=== PATIENT | male | born 1935 | race Caucasian/White ===

== ENCOUNTER → 2017-09-28 | Outpatient (CLI) | payer MEDICARE, BC ==
[~2017-09-28] MED LIST: ATOR10TA PO; DILT120C2 PO; FLUO10CA13 PO; FLUO25PO MC; META-21 PO; NITR2.5C3 PO; OMEP20CA5 PO; ONDA4TAB7 PO; PRAV20TA PO; PROP150T PO; QUIN1POW MC; SPIR25TA PO; VENL37.5 PO; WARF2TAB7 PO
--- NOTE | 2017-09-28 16:27 | RAD ---
2 view CXR: Clinical indications: Shortness of air. Atrial fibrillation. History of right upper lobe lobectomy. Comparison: January 27, 2017.. Findings: Postoperative changes of the right lung field and right hilum are evident. No acute lung infiltrate or pleural effusion or pulmonary edema or lung mass or pneumothorax is seen. The heart size, pulmonary vasculature, mediastinum and both elodia are otherwise unremarkable. The osseous structures appear intact. Impression: No acute radiographic abnormality is seen.
== END | disposition home or self-care (01) ==
LOC: RAD 15:50
PROVIDERS: ATTEND Nurse Practitioner
DX: I48.91 Unspecified atrial fibrillation (principal); Z90.2 Acquired absence of lung [part of]
CPT/HCPCS: 71020

== ENCOUNTER → 2018-03-06 | Outpatient (CLI) | payer MEDICARE, BC ==
--- NOTE | 2018-03-06 13:57 | RAD ---
Ultrasound bilateral renal complete 03/06/2018 Clinical indication: Renal calcifications. Comparison: CT abdomen pelvis 06/17/2015. Findings: Right kidney measures 12.0 cm in length without hydronephrosis or abnormal perinephric fluid collection. There are two adjacent shadowing calculi at the interpolar/inferior pole right kidney measuring 0.8 and 0.7 cm. There is a shadowing echogenicity in the superior pole the right kidney measuring 0.7 cm. Left kidney measures 12.5 cm in length without hydronephrosis or abnormal perinephric fluid collection. There is a tiny left renal 0.4 cm echogenicity. The partially distended urinary bladder is unremarkable. Impression: 1. Three right and single left nonobstructive nephrolithiasis. 2. No hydronephrosis.
--- NOTE | 2018-03-06 13:59 | RAD ---
Single AP view abdomen 03/06/2018 Clinical indication: Renal calculi. Comparison: Abdominal radiograph 2016, CT abdomen and pelvis 06/17/2015. Findings: There are few punctate subcentimeter calculi overlying the left renal silhouette and at least a single punctate calcific density overlying the right renal silhouette. Right upper quadrant cholecystectomy clips multiple pelvic phleboliths. Left L4-L5 posterior spinal fixation with vertical aliyah and transpedicular screws in similar position. Bilateral lower thoracic and lumbar spondylosis. Impression: Bilateral punctate calculi overlying the renal silhouette, likely nephrolithiasis.
== END | disposition home or self-care (01) ==
LOC: US 10:36
PROVIDERS: ATTEND Physician Assistant Medical
DX: Z12.5 Encounter for screening for malignant neoplasm of prostate (principal); Z87.442 Personal history of urinary calculi
CPT/HCPCS: 74018; 76770; G0103

== ENCOUNTER 2018-07-09 15:40 | Inpatient (IN) | payer MEDICARE, BC ==
[2018-07-09] VITALS (8 sets, daily range): BP systolic 108–143; BP diastolic 57–80
[~2018-07-09] VITALS: Ht 177.8 cm; Wt 84.6 kg
[~2018-07-09 15:40] MED LIST changes: -WARF2TAB7 PO; +WARF2TAB96 PO
[2018-07-09] MEDS ORDERED: QUIN324C PO ×2 (16:25→17:03)
[2018-07-09] MEDS ORDERED: CYCL-331 PO (16:25)
[2018-07-09] MEDS ORDERED: PRAV80TA2 PO (16:25)
[2018-07-09] MEDS ORDERED: FLUO20CA16 PO (16:25)
[2018-07-09] MEDS ORDERED: OXYC-411 PO (16:25)
[2018-07-09] MEDS ORDERED: MONT10TA9 PO (16:25)
[2018-07-09] MEDS ORDERED: HYDR25TA9 PO (16:25)
--- NOTE | 2018-07-09 16:25 | EKG ---
[address] [address] Test Date: 2018-07-09 Test Time: 16:20:48 Pat Name: EVENS ROTHMAN Department: Room: [place] [address] Gender: M Mammography Tech: : 1935 Requested By: ROSE NGUYEN Order Number: [id number] Reading MD: Yo Johnson MD Measurements Intervals [place] Rate: 64 P: CT: QRS: 47 QRSD: 82 T: 71 QT: 410 QTc: 423 Interpretive Statements IRREGULAR RHYTHM, NO P-WAVE FOUND NON-SPECIFIC ST/T CHANGES Electronically Signed On 07-09-2018 17:12:10 CDT by Yo Johnson MD
[2018-07-09] MEDS ORDERED: SPIR25TA5 PO (17:03)
[2018-07-09] MEDS ORDERED: WARF2.5T83 PO (17:03)
[2018-07-09] MEDS ORDERED: TAMS0.4C2 PO (17:03)
[2018-07-09 17:15] LABS: BASO # 0.1 x10^3/uL (0.0-0.2); BASO % 1 % (0-3); EOS # 0.2 x10^3/uL (0.0-0.7); EOS % 3 % (0-3); HEMATOCRIT 29.3 % (39.0-53.0); HEMOGLOBIN 9.5 g/dL (13.0-17.5); LYMPH # 1.5 x10^3/uL (1.0-4.8); LYMPH % 26 % (24-48); MEAN CORPUSCULAR HEMOGLOBIN 27 pg (25-35); MEAN CORPUSCULAR HGB CONC 32 g/dL (31-37); MEAN CORPUSCULAR VOLUME 85 fL (79-100); MONO # 0.5 x10^3/uL (0.0-1.1); MONO % 8 % (0-9); NEUT # 3.7 x10^3uL (1.8-7.7); NEUT % 62 % (31-73); PLATELET COUNT 282 x10^3/uL (140-400); RED BLOOD COUNT 3.45 x10^6/uL (4.30-5.70); RED CELL DISTRIBUTION WIDTH 19.7 % (11.5-14.5)
[2018-07-09] MEDS ORDERED: quiNINE 324 MG CAPSULE. PO PRN (17:15)
[2018-07-09] MEDS ORDERED: CYCLOBENZAPRINE 10 MG TABLET. PO PRN (17:15)
[2018-07-09] MEDS ORDERED: ONDANSETRON PF 4 MG/2 ML VIAL. IV PRN (17:15)
[2018-07-09 17:23] LABS: ALBUMIN 3.2 g/dL (3.4-5.0); ALBUMIN/GLOBULIN RATIO 1.1 (1.0-1.7); CALCIUM 8.4 mg/dL (8.5-10.1); CREATININE 0.8 mg/dL (0.7-1.3); GFR 92.8; MAGNESIUM 1.9 mg/dL (1.8-2.4); TOTAL BILIRUBIN 0.3 mg/dL (0.2-1.0); TOTAL PROTEIN 6.1 g/dL (6.4-8.2)
[2018-07-09] MEDS: FUROSEMIDE INJ 100 MG in IV NORMAL SALINE 100ML 90 ML IV PRN (17:41)
[2018-07-09] MEDS ORDERED: ONDANSETRON ODT 4 MG TAB.RAPDIS PO SCH (18:00)
[2018-07-09] MEDS ORDERED: WARFARIN 5 MG TABLET. PO ONE (19:00)
--- NOTE | 2018-07-09 19:33 | HP ---
ADMIT DATE: 07/09/2018 HISTORY OF PRESENT ILLNESS: The patient is an 83-year-old male patient who was admitted directly from the [facility] cardiology team for increasing shortness of breath, marked swelling of the legs, orthopnea, dyspnea, and to be started on Lasix drip. The patient denied any chest pain, denied any cough, phlegm or hemoptysis. Did complain of marked swelling of his legs. PAST MEDICAL HISTORY: Significant for hypertension, hyperlipidemia, atrial fibrillation that has not responded to cardioversion x 5, and also atrial ablation done at the [facility]. He is known to have congestive heart failure, likely due to left ventricular diastolic dysfunction, nephrolithiasis requiring cystoscopy, retrograde pyelography and lithotripsy, benign prostatic hypertrophy, COPD, obstructive sleep apnea, generalized osteoarthritis, TIA. PAST SURGICAL HISTORY: Significant for 10 back surgery, left eye cataract extraction, tonsillectomy, cholecystectomy, appendectomy, left total knee arthroplasty, and atrial ablation. ALLERGIES: He is allergic to CORTISONE, DRONEDARONE, and MELOXICAM. MEDICATIONS: He is currently on following medications: He is on Quinine sulfate 324 mg b.i.d., Flomax 0.4 mg at bedtime, cyclobenzaprine 10 mg 3 times a day, warfarin 2.5 mg daily, pravastatin sodium 80 mg at bedtime, diltiazem hydrochloride 120 mg daily, spironolactone 25 mg once a day, oxycodone/APAP 10/325 one tablet every 4 hours. Fluoxetine for Prozac 20 mg daily with breakfast, hydrochlorothiazide 25 mg once a day, montelukast sodium 10 mg daily, ondansetron 4 mg every 6 hours, omeprazole for Prilosec 20 mg, he takes 2 tablets p.o. b.i.d. FAMILY HISTORY: He has 2 brothers, one at age of 43 because of advanced liver cirrhosis and hepatocellular carcinoma. The other brother at age of 81, because of myocardial infarction. His father at the age of 58, the cause of is not clear. His mother at age of 75 because of myocardial infarction. SOCIAL HISTORY: He is , the son and daughter from a previous marriage. He smoked a pack a day for almost 35 years, quit smoking about 30 years ago. He used to be also a heavy alcohol drinker, quit 30 years ago. 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 REVIEW OF SYSTEMS: The patient denied any blurring of vision, did have cataract extraction, left eye, but denied any glaucoma or macular degeneration. Denied any earache, tinnitus or sensorineural deafness. Denied any nosebleeds, stuffy nose or postnasal drip. Denied any sore throat, sore tongue, toothache, hoarseness of voice or difficulty swallowing. Denied any nausea, vomiting, diarrhea or constipation. Denied any hematemesis, melena or hematochezia. Denied any dysuria, frequency or hematuria. Denied any chest pain. Did complain of shortness of breath, orthopnea or paroxysmal nocturnal dyspnea. Denied any cough, phlegm or hemoptysis. Denied any chills, rigors, or fever. Denied any dizziness, lightheadedness, or vertigo. PHYSICAL EXAMINATION: GENERAL: When I examined him this afternoon, he was resting slightly propped up in bed, in no apparent respiratory distress. He was slightly pale, but no jaundice, cyanosis, or thyromegaly. No jugular venous distension. Marked bilateral lower limb edema. VITAL SIGNS: His heart rate was 68, blood pressure 127/69, temperature was 98, respiratory rate 20, and oxygen saturation was 98% on 3 liters of oxygen. HEAD, EYES, EARS, NOSE, AND THROAT: Showed normocephalic, atraumatic. NECK: Supple. HEART: Showed normal first and second heart sounds with no gallop, rub or murmur. CHEST: Shows central trachea, equal bilateral expansion, air entry, vesicular sounds with bilateral basal crepitation. I could not appreciate any rhonchi. ABDOMEN: Distended, soft, and nontender. NEUROLOGIC: He is awake, alert, responding appropriately. Cranial nerves intact. EXTREMITIES: He moves extremities without difficulty. He ambulates without assistance or assistive devices. Examination of the extremities showed no clubbing, cyanosis with marked bilateral lower limb edema. SUMMARY: This is an 83-year-old male patient who was admitted with acute on chronic diastolic congestive heart failure with worsening shortness of breath, bilateral basal crepitation and marked swelling of both lower extremities, it has been progressing over the last 2 weeks. He will be started on Lasix drip. We will check his lab work including a CBC, CMP, BMP, prothrombin time, and a chest x-ray. I will reconcile all his medication, probably hold his hydrochlorothiazide, and repeat his labs again tomorrow. He needs also to have a daily weight. We will monitor his electrolytes closely and replenish them as needed. We will consult the cardiology team, Janice Askew to assist with his management. ROSE NGUYEN MD DR: JOSÉ MANUEL/oswald JOB#: [id number] / [id number]
[2018-07-09] MEDS: POTASSIUM CHLORIDE 20 MEQ TABLET.ER. PO SCH (20:09)
[2018-07-09] MEDS: oxyCODONE/APAP 10/325 1 TAB TABLET PO SCH (20:09)
[2018-07-09] MEDS: PRAVASTATIN 20 MG TABLET. PO SCH (20:09)
[2018-07-09] MEDS: PANTOPRAZOLE 40 MG TABLET. PO SCH (20:10)
--- NOTE | 2018-07-09 22:01 | RAD ---
Indication:Shortness of air TECHNIQUE:Portable AP chest X-ray COMPARISON:09/28/2017 FINDINGS: Heart is moderately enlarged in size. Prominent bilateral microvascular markings are seen. There is blunting of the right costophrenic angle. No pneumothorax. Visualized bony thorax within normal limits. IMPRESSION: Stable mild cardiomegaly. Pulmonary vascular congestion and mild interstitial pulmonary edema. Small area of consolidation in the right costophrenic angle may represent small effusion or atelectasis or pneumonia. Electronically signed by: Ash Tellez DO (07/09/2018 9:57 PM) [facility]
[2018-07-10] VITALS (12 sets, daily range): BP systolic 114–137; BP diastolic 57–76
[2018-07-10] MEDS: oxyCODONE/APAP 10/325 1 TAB TABLET PO SCH ×6 (01:16→20:37)
[2018-07-10 06:19] LABS: BASO # 0.1 x10^3/uL (0.0-0.2); BASO % 1 % (0-3); EOS # 0.3 x10^3/uL (0.0-0.7); EOS % 5 % (0-3); HEMATOCRIT 29.8 % (39.0-53.0); HEMOGLOBIN 9.7 g/dL (13.0-17.5); LYMPH # 1.8 x10^3/uL (1.0-4.8); LYMPH % 28 % (24-48); MEAN CORPUSCULAR HEMOGLOBIN 28 pg (25-35); MEAN CORPUSCULAR HGB CONC 33 g/dL (31-37); MEAN CORPUSCULAR VOLUME 85 fL (79-100); MONO # 0.6 x10^3/uL (0.0-1.1); MONO % 10 % (0-9); NEUT # 3.6 x10^3uL (1.8-7.7); NEUT % 56 % (31-73); PLATELET COUNT 285 x10^3/uL (140-400); RED BLOOD COUNT 3.53 x10^6/uL (4.30-5.70); RED CELL DISTRIBUTION WIDTH 19.3 % (11.5-14.5); WHITE BLOOD COUNT 6.4 x10^3/uL (4.0-11.0)
[2018-07-10 06:33] LABS: ALBUMIN 3.3 g/dL (3.4-5.0); ALBUMIN/GLOBULIN RATIO 1.1 (1.0-1.7); CALCIUM 8.4 mg/dL (8.5-10.1); CREATININE 0.8 mg/dL (0.7-1.3); TOTAL PROTEIN 6.3 g/dL (6.4-8.2)
[2018-07-10 06:34] LABS: GFR 92.8; POTASSIUM 3.6 mmol/L (3.5-5.1); TOTAL BILIRUBIN 0.4 mg/dL (0.2-1.0)
[2018-07-10] MEDS: FLUoxetine HCL 20 MG CAPSULE PO SCH (08:18)
[2018-07-10] MEDS: MONTELUKAST 10 MG TABLET. PO SCH (08:19)
[2018-07-10] MEDS: SPIRONOLACTONE 25 MG TABLET PO SCH (08:19)
[2018-07-10] MEDS: POTASSIUM CHLORIDE 20 MEQ TABLET.ER. PO SCH ×3 (08:19→20:38)
[2018-07-10] MEDS: TAMSULOSIN 0.4 MG CAP.ER.24H. PO SCH (08:19)
[2018-07-10] MEDS: PANTOPRAZOLE 40 MG TABLET. PO SCH ×2 (08:19→20:38)
[2018-07-10] MEDS ORDERED: SPIRONOLACTONE PO SCH (09:00)
--- NOTE | 2018-07-10 10:06 | PDOC2 ---
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 He has a past medical history of hypertension, chronic atrial fibrillation, moderate pulmonary hypertension, and mild obstructive sleep apnea. Last March he was diagnosed with COPD and started on breathing treatments and inhalers over the next month progressed and a 6 min walk done in April revealed that he needed chronic oxygen to maintain his O2 saturation. He was started on 3 L and has been wearing it at home 24 hr a day. Over the last 2 weeks his swelling in his lower extremities has progressively gotten worse to the point where he had to cut his she used to be able to put them on his feet. He was short of breath with walking 20 ft from room to room so we asked him to admit to [facility] for a Lasix drip and to be diuresed. Overnight he has lost 6 lb and his breathing has improved today. His swelling is better and he has compression socks on. He denies any chest pain, pressure or tightness. He has not felt any palpitations. He is anemic on his blood work and he tells me that he had a colonoscopy done 10 years ago and they took up polyps and he has not had a repeat procedure. He is on Coumadin with therapy but has not seen any blood in his urine or stool. Past medical history is significant for hypertension, chronic atrial fibrillation, multiple cardioversions, moderate pulmonary hypertension, mild sleep apnea, COPD PAST SURGICAL HISTORY: Significant for 10 back surgery, left eye cataract extraction, tonsillectomy, cholecystectomy, appendectomy, left total knee arthroplasty, and atrial ablation. ALLERGIES: He is allergic to CORTISONE, DRONEDARONE, and MELOXICAM. MEDICATIONS: He is currently on following medications: He is on Quinine sulfate 324 mg b.i.d., Flomax 0.4 mg at bedtime, cyclobenzaprine 10 mg 3 times a day, warfarin 2.5 mg daily, pravastatin sodium 80 mg at bedtime, diltiazem hydrochloride 120 mg daily, spironolactone 25 mg once a day, oxycodone/APAP 10/325 one tablet every 4 hours. Fluoxetine for Prozac 20 mg daily with breakfast, hydrochlorothiazide 25 mg once a day, montelukast sodium 10 mg daily, ondansetron 4 mg every 6 hours, omeprazole for Prilosec 20 mg, he takes 2 tablets p.o. b.i.d. FAMILY HISTORY: His father at age 58 of uncertain etiology. His mother at 75 of [place]. He has 2 brothers 1 at 43 with cirrhosis and the other at 81 because Social history he lives at home with his he is retired. He denies any alcohol or tobacco use. Review of systems -review of 10 organ systems is negative except for as in HPI Physical Exam Patient is an 83-year-old male. GENERAL: This is a well developed, well nourished male. No apparent distress. SKIN: Warm and dry with normal skin turgor. + for pallor. No lesions or rashes noted. EYES: Conjunctiva are clear. Extraocular movements are intact. No xanthelasma. HEAD AND NECK: Oral mucosa is moist. There is no cyanosis. Neck is supple. Jugular venous pressure is flat. Carotid pulses are 2/2 bilaterally. No carotid bruits. There is no obvious thyromegaly. HEART: Irregular rhythm with HR of 76. Normal S1 and S2. No S3. No S4.+ systolic murmur LUNGS: Effort is good. There is symmetric expansion bilaterally. Right base wheezes. improved crackles. No rhonchi. ABDOMEN: Normal active bowel sounds. Soft. Nontender. EXTREMITIES: No clubbing. No cyanosis. +1 edema of lower extremities. Palpable pedal pulses. MUSCULOSKELETAL: No kyphosis. No scoliosis. No localized tenderness or stiffness. Gait appears normal. NEUROLOGIC: Alert and oriented times three. Cranial nerves III-XII are grossly intact. Good motor tone and strength in the upper and lower extremities bilaterally. PSYCHOLOGIC: This is a pleasant patient with a normal affect. Procedure Documentation ECHOCARDIOGRAM IMPRESSION (09/06/2017): The left ventricle is normal in size. There is moderate concentric left ventricular hypertrophy. No significant regional wall motion abnormalities are identified. The left ventricular systolic function is normal with a visually estimated ejection fraction of 60-65%. The left ventricular diastolic function could not be determined on this study. The left atrium appears moderately dilated. The right atrium appears severely dilated. There is mild aortic valve sclerosis. There is moderate tricuspid regurgitation. The estimated pulmonary artery systolic pressure is 45 mmHg, consistent with mild to moderate pulmonary hypertension. Compared to the report (images were not available for review) of the study dated 08/01/2016, the dilatation of the right ventricle was not seen on this study. The dilatation of the right atrium and the ascending aorta have progressed and the dilatation of the left atrium was not noted on the previous study. LEXISCAN NUCLEAR STRESS TEST IMPRESSION (02/20/2017): Normal myocardial perfusion scan. There did appear to be a degree of attenuation artifact, but not evidence of inducible ischemia. The summed stress score is one. Normal left ventricular systolic function Ejection fraction: 59%. There is no stress induced left ventricular dilatation or increase in lung to heart ratio. The stress ECG demonstrated no new ischemic changes when compared to baseline arrhythmias. There was no stress induced chest pain. EVENT MONITOR RESULTS (12/05/2016): 1. This is a 14-day event recorder report. 2. Baseline sinus rhythm with an average heart rate of 73 beats per minute, ranging from 41 to 162 beats per minute. 3. There was frequent supraventricular ectopy and rare ventricular ectopy with 12 runs of paroxysmal supraventricular tachycardia with a maximum duration of 12 beats and a maximum heart rate of 162 beats per minute. There was no high-grade ventricular ectopy. 4. There were intermittent episodes of 2:1 atrioventricular block. 5. There appeared to be a rate related bundle-branch block at times. 6. There were 10 patient triggered events, some of which correlated to premature supraventricular and premature ventricular complexes. 7. There were 12 diary entries, most of which correlated to sinus rhythm and some with supraventricular and ventricular ectopic beats. ECHOCARDIOGRAM IMPRESSION (08/01/2016):. There is asymmetrical moderate concentric left ventricular hypertrophy. No significant regional wall motion abnormalities are identified. The left ventricular systolic function is normal with an estimated ejection fraction of 50-55%. The left ventricular diastolic function could not be determined on this study. The right atrium appears moderately dilated. The proximal ascending aorta appears mildly dilated at 3.8 cm. There is mild mitral regurgitation. There is moderate tricuspid regurgitation. The estimated pulmonary artery systolic pressure is 38 mmHg, consistent with mild pulmonary hypertension. Compared to the report (images were not available for review) of the study dated 07/30/2015, the pulmonary hypertension has decreased slightly. Assessment / Plan Acute diastolic heart failure-reviewed patient - Improving with Lasix drip. Continue and will plan to recheck chest x-ray and lab work in the morning. Plan for echocardiogram today, he is making good progress. Anemia of undetermined etiology - he did have a colonoscopy 10 years ago that they remove polyps and has not had further evaluation. He will likely need an outpatient GI workup. Atrial fibrillation, chronic. The patient is in atrial fibrillation today. [id number] score is 3, the patient is on Coumadin or anticoagulation and Cardizem CD for rate maintenance. Chronic respiratory failure on supplemental oxygen - plan for outpatient pulmonary referral post hospitalization. We will also titrate his oxygen back. And prior to discharge do a 6 min walk to see if he requires oxygen once his congestive heart failure has Compensated. Hypertension, controlled. Moderate LVH. Continue present anti-hypertensive medication. Hypercholesterolemia . His goal LDL is < 100 mg/dL. Continue statin therapy. Congenital great vessel anomaly by history. Current Medications Current Medications Ondansetron HCl (Zofran) 4 mg PRN Q8HRS PRN IV NAUSEA/VOMITING; Start 07/09/18 at 17:15 Furosemide 100 mg/ Sodium Chloride 100 ml @ 5 mls/hr CONT PRN IV SEE I/O RECORD Last administered on 07/09/18at 17:41; Start 07/09/18 at 17:15 Cyclobenzaprine HCl (Flexeril) 10 mg PRN TID PRN PO PAIN; Start 07/09/18 at 17: 15 Diltiazem HCl (Cardizem 24hr Cd) 120 mg DAILY PO Last administered on at 08:19; Start 07/10/18 at 09:00 Oxycodone/ Acetaminophen (Percocet 10/325) 1 tab Q4HRS PO Last administered on 07/10/18at 05:30; Start 07/09/18 at 20:00 Quinine Sulfate (Qualaquin) 324 mg PRN BID PRN PO leg cramps; Start 07/09/18 at 17:15 Tamsulosin HCl (Flomax) 0.4 mg DAILY PO Last administered on 07/10/18at 08:19; Start 07/10/18 at 09:00 Fluoxetine HCl (PROzac) 20 mg DAILYWBKFT PO Last administered on 07/10/18at 08: 18; Start 07/10/18 at 08:00 Montelukast Sodium (Singulair) 10 mg DAILY PO Last administered on 07/10/18at 08 :19; Start 07/10/18 at 09:00 Pantoprazole Sodium (Protonix) 40 mg BID PO Last administered on 07/10/18at 08: 19; Start 07/09/18 at 21:00 Ondansetron HCl (Zofran Odt) 4 mg Q6HRS PO ; Start 07/09/18 at 18:00; Stop 07/09 at 18:00; Status DC Pravastatin Sodium (Pravachol) 80 mg QHS PO Last administered on 07/09/18at 20: 09; Start 07/09/18 at 21:00 Spironolactone (Aldactone) 25 mg DAILY PO Last administered on 07/10/18at 08:19 ; Start 07/10/18 at 09:00 Non-Formulary Medication (Spironolactone (Aldactone)) 1 tab DAILY PO ; Start at 09:00; Status UNV Warfarin Sodium (Coumadin) 2.5 mg DAILY16 PO ; Start 07/10/18 at 16:00 Warfarin Sodium (Coumadin Per Physician) 1 each PRN DAILY PRN MC SEE COMMENTS; Start 07/09/18 at 17:45 Potassium Chloride (Klor-Con) 40 meq BID PO Last administered on 07/10/18at 08: 19; Start 07/09/18 at 21:00 Warfarin Sodium (Coumadin) 5 mg 1X ONCE PO Last administered on 07/09/18at 20: 10; Start 07/09/18 at 19:00; Stop 07/09/18 at 19:07; Status DC Active Scripts Active Reported Coumadin (Warfarin Sodium) 2.5 Mg Tablet 1 Tab PO DAILY Tamsulosin Hcl 0.4 Mg Cap.er.24h 1 Cap PO DAILY Spironolactone 25 Mg Tablet 1 Tab PO DAILY Quinine Sulfate 324 Mg Capsule 324 Mg PO BID PRN Pravastatin Sodium 80 Mg Tablet 1 Tab PO QHS Oxycodone-Acetaminophen 10-325 (Oxycodone Hcl/Acetaminophen) 1 Each Tablet 1 Tab PO Q4HRS Montelukast Sodium Tablet (Montelukast Sodium) 10 Mg Tablet 1 Tab PO DAILY Hydrochlorothiazide Tablet (Hydrochlorothiazide) 25 Mg Tablet 0.5 Tab PO DAILY Prozac (Fluoxetine Hcl) 20 Mg Capsule 1 Cap PO DAILYWBKFT Cyclobenzaprine Hcl 10 Mg Tablet 1 Tab PO TID PRN Cardizem Cd (Diltiazem Hcl) 120 Mg Cap.er.24h Unknown Dose PO DAILY Prilosec (Omeprazole) 20 Mg Capsule.dr 2 Cap PO BID Zofran (Ondansetron Hcl) 4 Mg Tablet 1 Tab PO Q6HRS Aldactone (Spironolactone) 25 Mg Tablet 1 Tab PO DAILY Allergies: Coded Allergies: meloxicam (Verified Allergy, Severe, Anaphylaxis, 07/09/18) cortisone (Verified Allergy, Mild, Unknown, 07/09/18) pain/cramping dronedarone (Verified Allergy, Mild, Diarrhea, 07/09/18) VITALS Vital Signs Date Time Temp Pulse Resp B/P (MAP) Pulse Ox O2 Delivery O2 Flow Rate FiO2 07/10/18 09:08 85 18 129/74 (92) 95 Nasal Cannula 2.0 07/09/18 21:00 98.0 Labs Laboratory Tests Test 07/09/18 16:45 07/10/18 05:44 White Blood Count 6.0 x10^3/uL (4.0-11.0) 6.4 x10^3/uL (4.0-11.0) Red Blood Count 3.45 x10^6/uL (4.30-5.70) 3.53 x10^6/uL (4.30-5.70) Hemoglobin 9.5 g/dL (13.0-17.5) 9.7 g/dL (13.0-17.5) Hematocrit 29.3 % (39.0-53.0) 29.8 % (39.0-53.0) Mean Corpuscular Volume 85 fL (79-100) 85 fL (79-100) Mean Corpuscular Hemoglobin 27 pg (25-35) 28 pg (25-35) Mean Corpuscular Hemoglobin Concent 32 g/dL (31-37) 33 g/dL (31-37) Red Cell Distribution Width 19.7 % (11.5-14.5) 19.3 % (11.5-14.5) Platelet Count 282 x10^3/uL (140-400) 285 x10^3/uL (140-400) Neutrophils (%) (Auto) 62 % (31-73) 56 % (31-73) Lymphocytes (%) (Auto) 26 % (24-48) 28 % (24-48) Monocytes (%) (Auto) 8 % (0-9) 10 % (0-9) Eosinophils (%) (Auto) 3 % (0-3) 5 % (0-3) Basophils (%) (Auto) 1 % (0-3) 1 % (0-3) Neutrophils # (Auto) 3.7 x10^3uL (1.8-7.7) 3.6 x10^3uL (1.8-7.7) Lymphocytes # (Auto) 1.5 x10^3/uL (1.0-4.8) 1.8 x10^3/uL (1.0-4.8) Monocytes # (Auto) 0.5 x10^3/uL (0.0-1.1) 0.6 x10^3/uL (0.0-1.1) Eosinophils # (Auto) 0.2 x10^3/uL (0.0-0.7) 0.3 x10^3/uL (0.0-0.7) Basophils # (Auto) 0.1 x10^3/uL (0.0-0.2) 0.1 x10^3/uL (0.0-0.2) Prothrombin Time 17.2 SEC (9.4-11.4) 16.1 SEC (9.4-11.4) Prothromb Time International Ratio 1.7 (0.9-1.1) 1.6 (0.9-1.1) Nasal Screen MRSA (PCR) Negative (Negative) Sodium Level 142 mmol/L (136-145) 142 mmol/L (136-145) Potassium Level 4.0 mmol/L (3.5-5.1) 3.6 mmol/L (3.5-5.1) Chloride Level 105 mmol/L (98-107) 103 mmol/L (98-107) Carbon Dioxide Level 30 mmol/L (21-32) 34 mmol/L (21-32) Anion Gap 7 (6-14) 5 (6-14) Blood Urea Nitrogen 9 mg/dL (8-26) 9 mg/dL (8-26) Creatinine 0.8 mg/dL (0.7-1.3) 0.8 mg/dL (0.7-1.3) Estimated GFR (Cockcroft-Gault) 92.8 92.8 BUN/Creatinine Ratio 11 (6-20) 11 (6-20) Glucose Level 95 mg/dL (70-99) 92 mg/dL (70-99) Calcium Level 8.4 mg/dL (8.5-10.1) 8.4 mg/dL (8.5-10.1) Magnesium Level 1.9 mg/dL (1.8-2.4) 1.8 mg/dL (1.8-2.4) Total Bilirubin 0.3 mg/dL (0.2-1.0) 0.4 mg/dL (0.2-1.0) Aspartate Amino Transf (AST/SGOT) 15 U/L (15-37) 15 U/L (15-37) Alanine Aminotransferase (ALT/SGPT) 9 U/L (16-63) 9 U/L (16-63) Alkaline Phosphatase 72 U/L (46-116) 74 U/L (46-116) Total Protein 6.1 g/dL (6.4-8.2) 6.3 g/dL (6.4-8.2) Albumin 3.2 g/dL (3.4-5.0) 3.3 g/dL (3.4-5.0) Albumin/Globulin Ratio 1.1 (1.0-1.7) 1.1 (1.0-1.7) [id number]-Type Natriuretic Peptide 1176 pg/mL (0-449) KRISTIN VERNON Jr, MD 07/15/18 1050: CONSULT Assessment/Plan ADDENDUM: The patient was seen by Minnie Colin APRN and I have reviewed her findings and plan and agree with above. Due to staffing constraints, we did not have an attending available on this day to see the patient. MD FRANNY Heart Jr., JANAE M APRN Jul 10, 2018 10:06 KRISTIN VERNON Jr, MD Jul 15, 2018 10:50
[2018-07-10] MEDS: FUROSEMIDE INJ 100 MG in IV NORMAL SALINE 100ML 90 ML IV PRN (12:01)
[2018-07-10] MEDS ORDERED: WARFARIN 5 MG TABLET. PO SCH (16:00)
[2018-07-10] MEDS ORDERED: WARFARIN 2 MG TABLET. PO SCH (16:00)
[2018-07-10] MEDS ORDERED: WARFARIN 2.5 MG TABLET. PO SCH (16:00)
[2018-07-10] MEDS: PRAVASTATIN 20 MG TABLET. PO SCH (20:38)
[2018-07-11] MEDS: oxyCODONE/APAP 10/325 1 TAB TABLET PO SCH ×3 (01:29→09:18)
[2018-07-11 01:31] VITALS: BP 125/61
--- NOTE | 2018-07-11 01:33 | PN ---
DATE: 07/10/2018 SUBJECTIVE: The patient is resting slightly propped up in bed, continues to be slightly tachypneic. He was started on Lasix drip yesterday and he lost about 6 pounds and today, he denied any chest pain; however, his main complaint is that he is constipated. PHYSICAL EXAMINATION: GENERAL: When I examined him, he looked well and was clearly in no apparent respiratory distress, pale. No jaundice, cyanosis, or thyromegaly. No jugular venous distention, but marked bilateral lower limb edema. VITAL SIGNS: His heart rate was 88, blood pressure 125/58, temperature was 98, respiratory rate was 18, and oxygen saturation was 97% on 1 liter of oxygen. HEAD, EYES, EARS, NOSE AND THROAT: Showed normocephalic, atraumatic. NECK: Supple. HEART: Showed normal first and second heart sounds. No gallop, rub, or murmur. CHEST: Shows central trachea, equally reduced expansion, reduced air entry, vesicular sounds. There is crepitation mostly posteriorly in both sides. ABDOMEN: Distended, soft, nontender. NEUROLOGIC: He is awake, alert, responding appropriately. All cranial nerves intact. He moves extremities without difficulty, ambulates without assistance or assistive devices. EXTREMITIES: His examination of the extremities showed no clubbing, cyanosis, but at least 2-3+ bilateral lower limb edema. His intake over the last 24 hours was 480, output was 3145. LABORATORY DATA: As of this morning, serum sodium was 142, potassium 3.6, chloride 103, bicarbonate 34, anion gap of 5, BUN 9, creatinine 0.8, estimated GFR was 92 mL per minute, his glucose was 92, calcium was 8.4. Total bilirubin, AST, ALT, alkaline phosphatase were normal. His total protein was 6.3, albumin was 3.3. White cell count was 6400, hemoglobin 10, hematocrit 30, MCV 85, platelet count of 285,000. His prothrombin time was 16.1, INR 1.6. His nasal screen for MRSA by PCR was negative. ASSESSMENT: 1. Seihp-cf-oiaidcv diastolic congestive heart failure. The patient lost about 6 pounds. His oxygen requirement is down from 3 to 1 liter. 2. Atrial fibrillation, chronic, well controlled. His PT/INR is subtherapeutic, so I increased his Coumadin to 7.5 mg. 3. Chronic respiratory failure, due to chronic obstructive pulmonary disease, hypertension, hyperlipidemia. PLAN: To continue with Lasix drip. His potassium is trending down, so we will start him on some potassium supplement and he is already on spironolactone. We will keep an eye on his electrolytes, kidney function, and magnesium. ROSE NGUYEN MD DR: JOSÉ MANUEL/oswald JOB#: [id number] / [id number]
[2018-07-11 05:40] VITALS: BP 109/54
[2018-07-11 06:31] LABS: HEMATOCRIT 31.7 % (39.0-53.0); HEMOGLOBIN 10.4 g/dL (13.0-17.5); RED BLOOD COUNT 3.76 x10^6/uL (4.30-5.70); WHITE BLOOD COUNT 6.6 x10^3/uL (4.0-11.0)
[2018-07-11 06:38] LABS: CALCIUM 8.5 mg/dL (8.5-10.1); CREATININE 0.9 mg/dL (0.7-1.3); MAGNESIUM 1.8 mg/dL (1.8-2.4); POTASSIUM 3.8 mmol/L (3.5-5.1)
[2018-07-11] MEDS: MONTELUKAST 10 MG TABLET. PO SCH (08:39)
[2018-07-11] MEDS: TAMSULOSIN 0.4 MG CAP.ER.24H. PO SCH (08:39)
[2018-07-11] MEDS: SPIRONOLACTONE 25 MG TABLET PO SCH (08:39)
[2018-07-11] MEDS: POTASSIUM CHLORIDE 20 MEQ TABLET.ER. PO SCH ×2 (08:39)
[2018-07-11] MEDS: FLUoxetine HCL 20 MG CAPSULE PO SCH (08:39)
[2018-07-11] MEDS: PANTOPRAZOLE 40 MG TABLET. PO SCH (08:44)
[2018-07-11 09:19] VITALS: BP 103/67
[2018-07-11 11:10] LABS: FECAL OB PT NEGATIVE (NEG)
[2018-07-11 12:08] VITALS: BP 114/64
--- NOTE | 2018-07-11 13:40 | PDOC ---
SUBJECTIVE Subjective: He is feeling better. He is able to lie flat. He still on room air but has reasonable saturations at rest Exam Constitutional: Denies fever or chills Eyes: Denies change in visual acuity HENT: Denies nasal congestion or sore throat Respiratory: Denies cough Cardiovascular: Denies chest pain or edema GI: Denies abdominal pain, nausea, vomiting, bloody stools or diarrhea : Denies dysuria Musculoskeletal: Denies back pain or joint pain Integument: Denies rash Neurologic: Denies headache, focal weakness or sensory changes Endocrine: Denies polyuria or polydipsia Lymphatic: Denies swollen glands Psychiatric: Denies depression or anxiety OBJECTIVE Vital Signs Vital Signs Date Time Temp Pulse Resp B/P (MAP) Pulse Ox O2 Delivery O2 Flow Rate FiO2 07/11/18 12:08 84 24 114/64 (81) 94 Nasal Cannula 1.0 07/11/18 05:40 97.2 Physical Exam Constitutional: Well developed, well nourished, no acute distress, non-toxic appearance. HENT: Normocephalic, atraumatic, bilateral external ears normal, oropharynx moist, no oral exudates, nose normal. Eyes: LIZZIE, EOMI, conjunctiva normal, no discharge. Neck: Normal range of motion, no tenderness, supple, no stridor. Cardiovascular: JVP not elevated. No carotid bruit. Nor precordial pulsations or heaves. S1 N,S2N. No murmurs. No rubs or clicks. Irregularly irregular Thorax and Lungs: NOrmal respiration. Normal chest expansion. Normal to percuss. Equal breath sounds. No crackles. He has Wheeze. Diminished breath sounds Abdomen: Bowel sounds normal, soft, no tenderness, no masses, no pulsatile masses. Skin: Warm, dry, no erythema, no rash. Back: No tenderness, no CVA tenderness. Extremities: Intact distal pulses, no tenderness, no cyanosis, no clubbing, ROM intact, mild edema. Neurologic: Alert and oriented X 3, normal motor function, normal sensory function, no focal deficits noted. Psychologic: Affect normal, judgement normal, mood normal. Lab Laboratory Tests Test 07/11/18 05:57 07/11/18 10:39 White Blood Count 6.6 x10^3/uL (4.0-11.0) Red Blood Count 3.76 x10^6/uL (4.30-5.70) L Hemoglobin 10.4 g/dL (13.0-17.5) L Hematocrit 31.7 % (39.0-53.0) L Mean Corpuscular Volume 84 fL (79-100) Mean Corpuscular Hemoglobin 28 pg (25-35) Mean Corpuscular Hemoglobin Concent 33 g/dL (31-37) Red Cell Distribution Width 19.0 % (11.5-14.5) H Platelet Count 309 x10^3/uL (140-400) Prothrombin Time 18.9 SEC (9.4-11.4) H Prothrombin Time INR 1.9 (0.9-1.1) H Sodium Level 142 mmol/L (136-145) Potassium Level 3.8 mmol/L (3.5-5.1) Chloride Level 101 mmol/L (98-107) Carbon Dioxide Level 34 mmol/L (21-32) H Anion Gap 7 (6-14) Blood Urea Nitrogen 9 mg/dL (8-26) Creatinine 0.9 mg/dL (0.7-1.3) Estimated GFR (Cockcroft-Gault) 81.0 Glucose Level 100 mg/dL (70-99) H Calcium Level 8.5 mg/dL (8.5-10.1) Magnesium Level 1.8 mg/dL (1.8-2.4) Stool Occult Blood Negative (NEG) MEDICATIONS Medications Current Medications Medications (Trade) Dose Ordered Sig/Chris Start Time Stop Time Status Last Admin Dose Admin Cyclobenzaprine HCl (Flexeril) 10 mg PRN TID PRN 07/09/18 17:15 Diltiazem HCl (Cardizem 24hr Cd) 120 mg DAILY 07/10/18 09:00 07/11/18 08:38 120 MG Fluoxetine HCl (PROzac) 20 mg DAILYWBKFT 07/10/18 08:00 07/11/18 08:39 20 MG Furosemide 100 mg/ Sodium Chloride 100 ml @ 5 mls/hr CONT PRN 07/09/18 17:15 07/10/18 12:01 5 MLS/HR Montelukast Sodium (Singulair) 10 mg DAILY 07/10/18 09:00 07/11/18 08:39 10 MG Non-Formulary Medication (Spironolactone (Aldactone)) 1 tab DAILY 07/10/18 09:00 UNV Ondansetron HCl (Zofran Odt) 4 mg Q6HRS 07/09/18 18:00 07/09/18 18:00 DC Ondansetron HCl (Zofran) 4 mg PRN Q8HRS PRN 07/09/18 17:15 Oxycodone/ Acetaminophen (Percocet 10/325) 1 tab Q4HRS 07/09/18 20:00 07/11/18 09:18 1 TAB Pantoprazole Sodium (Protonix) 40 mg BID 07/09/18 21:00 07/11/18 08:44 40 MG Potassium Chloride (Klor-Con) 20 meq BID 07/10/18 21:00 07/10/18 20:38 20 MEQ Pravastatin Sodium (Pravachol) 80 mg QHS 07/09/18 21:00 07/10/18 20:38 80 MG Quinine Sulfate (Qualaquin) 324 mg PRN BID PRN 07/09/18 17:15 Spironolactone (Aldactone) 25 mg DAILY 07/10/18 09:00 07/11/18 08:39 25 MG Tamsulosin HCl (Flomax) 0.4 mg DAILY 07/10/18 09:00 07/11/18 08:39 0.4 MG Warfarin Sodium (Coumadin Per Physician) 1 each PRN DAILY PRN 07/09/18 17:45 Warfarin Sodium (Coumadin) 2 mg DAILY16 07/10/18 16:00 07/10/18 17:23 2 MG PLAN Plan Acute decompensated congestive heart failure with preserved ejection fraction: The patient's x-ray shows pulmonary venous congestion without edema. His proBNP is 1176. The component of PD that makes his shortness of breath worse. In addition he has low serum albumin. He is on a Lasix drip and I will switch him to by mouth torsemide. His impression fraction was 60-6 benefits representative August 2017 with moderate LVH. I will plan another echo tomorrow. Pulmonary hypertension: He had mild to moderate pulmonary hypertension year ago. We will reassess this. His PA pressure was 45. Persistent atrial flutter ablation: He was in sinus in November 2016 but is in atrial fibrillation now. He is anticoagulated with warfarin and his INR was subtherapeutic and is slowly trending up to 1.9 now. COPD: He carries his diagnosis. He smoked about 40 years ago. He may need home O2. Left frontal hypertrophy: He is on diltiazem. His blood pressure is under good control. Rest limited: He is on statins. Low serum albumin: I will check a urine albumin FILIBERTO SMITH MD Jul 11, 2018 13:40
[2018-07-11] MEDS ORDERED: TORS20TA PO (13:44)
--- NOTE | 2018-07-11 14:17 | DS ---
DATE OF DISCHARGE: 07/11/2018 HOSPITAL COURSE: The patient is an 83-year-old male patient who was admitted directly from his Cardiology team with increasing shortness of breath, marked swelling of both lower extremities, orthopnea, and paroxysmal dyspnea. However, the patient denied any chest pain. Denied any shortness of breath, cough, phlegm, or hemoptysis. He was started on Lasix drip and did well. He lost about 9 pounds. He was able to lie flat without any difficulty. His oxygen saturation was 95-96% on room air at rest. He was seen in consultation by the Cardiology team and a decision was made to switch him to oral furosemide and to stop his hydrochlorothiazide and spironolactone and to be discharged and to be followed as an outpatient in the [facility] Cardiology team. PHYSICAL EXAMINATION: GENERAL: When I saw him this afternoon, he was resting, almost flat in bed, in no apparent respiratory distress, slightly pale, but no jaundice, cyanosis, or thyromegaly. No jugular venous distension. Mild bilateral lower limb edema. VITAL SIGNS: His heart rate was 84, blood pressure was 114/64, temperature was 97.2, respiratory rate was 24, and oxygen saturation was 95% on room air. HEAD, EYES, EARS, NOSE, AND THROAT: Showed normocephalic, atraumatic. NECK: Supple. HEART: Showed normal first and second heart sounds with no gallop, rub, or murmur. CHEST: Clear to auscultation. No crepitation or rhonchi. ABDOMEN: Slightly distended, soft, nontender. No guarding or rigidity. No organomegaly. All hernial orifice intact. Bowel sounds normal. NEUROLOGIC: He is awake, alert, responding appropriately. All cranial nerves intact. He moves extremities without difficulty, ambulates without assistance or assistive devices. His intake over the last 24 hours was 1120, output was 3175. LABORATORY DATA: As of this morning showed a white cell count of 6600, hemoglobin 10, hematocrit 32, MCV 84, and platelet count 109,000. Serum sodium was 142, potassium 3.8, chloride 101, bicarbonate 34, anion gap of 7, BUN 9, creatinine 0.9. Estimated GFR was 81 mL per minute. His glucose was 100, calcium was 8.5, magnesium was 1.8. His prothrombin time this morning was 18.9, INR 1.9. His nasal screen for MRSA PCR was negative and stool for occult blood was negative. DISCHARGE MEDICATIONS: He was discharged home to continue on following medication: Torsemide for Demadex 10 mg twice a day, cyclobenzaprine 10 mg 3 times a day, diltiazem hydrochloride 120 mg once a day, fluoxetine for Prozac 20 mg once a day, montelukast, Singulair 10 mg at bedtime, omeprazole for Prilosec 20 mg twice a day, Zofran 4 mg every 6 hours as needed, oxycodone/CPAP 10/325 takes one tablet every 4 hours, pravastatin sodium 80 mg. He is also on quinine sulfate 324 mg twice a day, tamsulosin 0.4 mg at bedtime, and warfarin 7 mg daily. His hydrochlorothiazide and spironolactone were discontinued. FINAL DISCHARGE DIAGNOSES: 1. Acute on chronic diastolic congestive heart failure, improving. He lost about 9 pounds. His oxygen requirement is much improved. He is now maintaining his oxygen saturation of 95-96% on room air at rest. 2. Atrial fibrillation, chronic, rate controlled. His INR is slightly subtherapeutic at 1.9. 3. Chronic hypoxic respiratory failure. 4. Chronic obstructive pulmonary disease. 5. Hypertension. 6. Hyperlipidemia. The patient was discharged to continue on Demadex and potassium. We discontinued his hydrochlorothiazide and spironolactone. We should monitor his INR and adjust Coumadin to maintain his INR between 2-2.5. ROSE NGUYEN MD DR: JOSÉ MANUEL/oswald JOB#: [id number] / [id number]
[2018-07-11 14:22] LABS: BACTERIA,URINE 0 /HPF (0-FEW); BILIRUBIN,URINE NEG (NEG); CLARITY,URINE CLEAR; COLOR,URINE YELLOW; GLUCOSE,URINE NEG (NEG); HYALINE CASTS, URINE FEW /HPF; NITRITE,URINE NEG (NEG); SQUAMOUS EPITHELIAL CELL,UR OCC /LPF; UROBILINOGEN,URINE 0.2 mg/dL (0.2 mg/dL); WBC,URINE RARE /HPF (0-4)
[2018-07-11] MEDS ORDERED: POTASSIUM CHLORIDE 10 MEQ TABLET.ER. PO SCH (21:00)
[2018-07-11] MEDS ORDERED: TORSEMIDE 20 MG TABLET. PO SCH (21:00)
== END 2018-07-11 14:50 | disposition home or self-care (01) | DRG 292 ==
LOC: ICU 15:54
PROVIDERS: ADMIT Internal Medicine; ATTEND Internal Medicine
DX: I11.0 Hypertensive heart disease with heart failure (principal); J96.11 Chronic respiratory failure with hypoxia; I48.92 Unspecified atrial flutter; I50.33 Acute on chronic diastolic (congestive) heart failure; G47.33 Obstructive sleep apnea (adult) (pediatric); E78.5 Hyperlipidemia, unspecified; I48.2 Chronic atrial fibrillation; I27.20 Pulmonary hypertension, unspecified; J44.9 Chronic obstructive pulmonary disease, unspecified; M15.9 Polyosteoarthritis, unspecified; K59.00 Constipation, unspecified; Z96.652 Presence of left artificial knee joint; N40.0 Benign prostatic hyperplasia without lower urinary tract symptoms; Z79.01 Long term (current) use of anticoagulants; Z80.0 Family history of malignant neoplasm of digestive organs; Z82.49 Family history of ischemic heart disease and other diseases of the circulatory system; Z86.73 Personal history of transient ischemic attack (TIA), and cerebral infarction without residual deficits; Z87.891 Personal history of nicotine dependence; Z87.442 Personal history of urinary calculi; Z88.8 Allergy status to other drugs, medicaments and biological substances; Z79.899 Other long term (current) drug therapy; Z90.49 Acquired absence of other specified parts of digestive tract
CPT/HCPCS: 36415; 71045; 80048; 80053; 81001; 82274; 83735; 83880; 85025; 85027; 85610; 87641; 93005; 94618

== ENCOUNTER → 2019-07-01 | Outpatient (CLI) | payer MEDICARE, BC ==
[~2019-07-01] MED LIST changes: +CYCL-331 PO; +FLUO20CA16 PO; +HYDR-2145 PO; +MONT10TA80 PO; +OXYC-411 PO; +PRAV80TA2 PO; +QUIN324C PO; +SPIR25TA5 PO; +TAMS0.4C2 PO; +TORS20TA PO; +WARF2.5T83 PO
[2019-07-01 13:16] LABS: BASO % 1 % (0-3); EOS # 0.2 x10^3/uL (0.0-0.7); EOS % 2 % (0-3); HEMATOCRIT 36.1 % (39.0-53.0); HEMOGLOBIN 11.6 g/dL (13.0-17.5); LYMPH % 25 % (24-48); MEAN CORPUSCULAR HEMOGLOBIN 28 pg (25-35); MEAN CORPUSCULAR HGB CONC 32 g/dL (31-37); MEAN CORPUSCULAR VOLUME 87 fL (79-100); MONO # 0.6 x10^3/uL (0.0-1.1); MONO % 7 % (0-9); NEUT # 5.1 x10^3uL (1.8-7.7); NEUT % 65 % (31-73); PLATELET COUNT 292 x10^3/uL (140-400); RED BLOOD COUNT 4.18 x10^6/uL (4.30-5.70); RED CELL DISTRIBUTION WIDTH 20.3 % (11.5-14.5); WHITE BLOOD COUNT 7.9 x10^3/uL (4.0-11.0)
[2019-07-01 15:10] LABS: ANISOCYTOSIS SLIGHT; MICROCYTOSIS PRESENT; OVALOCYTES OCC; PLT ESTIMATE ADEQUATE (ADEQUATE)
== END | disposition home or self-care (01) ==
LOC: SPEC 12:25
PROVIDERS: ATTEND Specialist
DX: I11.0 Hypertensive heart disease with heart failure (principal); I50.40 Unspecified combined systolic (congestive) and diastolic (congestive) heart failure; R68.89 Other general symptoms and signs; R79.89 Other specified abnormal findings of blood chemistry
CPT/HCPCS: 36415; 85025

== ENCOUNTER → 2019-07-16 | Outpatient (CLI) | payer MEDICARE, BC | END | disposition home or self-care (01) | LOC: SPEC 11:06 | PROVIDERS: ATTEND Internal Medicine Cardiovascular Disease | DX: I11.0 Hypertensive heart disease with heart failure (principal); I50.9 Heart failure, unspecified; J44.9 Chronic obstructive pulmonary disease, unspecified; I48.91 Unspecified atrial fibrillation | CPT/HCPCS: 36415; 83880 ==

== ENCOUNTER 2020-06-25 11:54 | Inpatient (IN) | payer MEDICARE, BC ==
[~2020-06-25] VITALS: Ht 177.8 cm; Wt 76.0 kg
[~2020-06-25 11:54] MED LIST changes: -NITR2.5C3 PO; +NITR2.5C8 PO; -OXYC-411 PO; +OXYC1TAB20 PO; +WARF2.5T2 PO; -WARF2.5T83 PO
[2020-06-25 12:36] VITALS: BP 130/72
[2020-06-25] MEDS ORDERED: NITR0.4T22 SL (13:56)
[2020-06-25] MEDS ORDERED: ALBU2.5V5 NEB (13:56)
[2020-06-25] MEDS ORDERED: DOCU100C28 PO (13:56)
[2020-06-25] MEDS ORDERED: APIX5TAB3 PO (13:56)
[2020-06-25] MEDS ORDERED: ESCITALOPRAM OX20 MG PO (13:56)
[2020-06-25] MEDS ORDERED: POTA10TA5 PO (13:56)
[2020-06-25] MEDS ORDERED: DULO60CA6 PO (13:56)
[2020-06-25] MEDS: VANCOMYCIN PER PHARMACY MC PRN (14:28)
[2020-06-25 14:38] VITALS: BP 121/63
[2020-06-25] MEDS: oxyCODONE/APAP 10/325 1 TAB TABLET PO PRN ×2 (14:44→20:44)
--- NOTE | 2020-06-25 14:44 | HP ---
ADMIT DATE: 06/25/2020 ADMISSION HISTORY AND PHYSICAL ATTENDING PHYSICIAN: Dr. Avina. CHIEF COMPLAINT: Left arm swelling. HISTORY OF PRESENT ILLNESS: The patient is an 85-year-old gentleman transferred and admitted from [facility] ER. I spoke with the ER physician. He went in there with a 2-day history of increasing redness, pain and swelling of the left arm. The arm is indeed inflamed, extends all the way up into his elbow. It is red and erythematous. There is some excoriation and skin sloughed off. There is induration. No obvious abscess. X-rays demonstrated soft tissue swelling. He also was found to have elevated troponin of 0.38. Serial troponins have been ordered. We will have our radiology administrator evaluate him while he is here. He denied any chest pain or palpitations. He has exertional dyspnea from underlying COPD. A spiral CT there showed no evidence of pulmonary embolus. He is on chronic anticoagulation. PAST MEDICAL HISTORY: Significant for permanent pacemaker, paroxysmal atrial fibrillation, hypertension, hyperlipidemia, chronic back pain, and COPD. SOCIAL HISTORY: He has smoked up until 1989. He denies any significant alcohol use. He sees a radiology administrator at [facility]. ALLERGIES: HE HAS ALLERGIES TO CORTISONE AND MELOXICAM. CURRENT MEDICINES: Include albuterol, cyclobenzaprine, diltiazem, Colace, Eliquis, lisinopril, Singulair, Nitrostat, Prilosec, OxyContin, MiraLax, Pravachol, Imitrex and Flomax. He is retired and lives with his . PAST SURGICAL HISTORY: Numerous. He has had a permanent pacemaker, ablation of atrial fibrillation, appendectomy, knee arthroscopy, back surgery 10 times, cardioversion, carpal tunnel release, cataract extraction, cholecystectomy, several colonoscopies, cystoscopy, EGD, cataract extraction, kidney stone surgery, knee surgery, left upper lung lobectomy, myringotomy, skin lesion, trigger finger release, tympanostomy, and upper GI. FAMILY HISTORY: Significant for heart disease in both mom and dad. He is retired, lives with his . REVIEW OF SYSTEMS: Significant for no recent trauma, COVID exposure, fevers or chills. Symptoms are localized to the left arm. No nausea or vomiting. He denied any palpitations. All other systems reviewed and turned to be negative. PHYSICAL EXAMINATION: GENERAL: When I saw him, this is a pleasant elderly gentleman who is alert. INITIAL VITAL SIGNS: Showed a blood pressure of 130 systolic. He was afebrile. His oxygen saturations were 90%. HEENT: Head is without trauma. Pupils are reactive. Sclerae nonicteric. The oropharynx is clear. NECK: Supple, no bruits identified. LUNGS: Good breath sounds. CARDIOVASCULAR: Showed regular heart tones. No gallops. Peripheral pulses are palpable and full. ABDOMEN: Obese, protuberant. No organomegaly. Bowel sounds are hypoactive. EXTREMITIES: Showed swelling of the left arm redness and erythema extending all the way past the elbow into his mid forearm. There is redness, erythema and some skin that is sloughing. No abscess is identified. No pedal edema. NEUROLOGIC: Focally intact. Speech is fluent. SKIN: Otherwise warm and dry. LABORATORY DATA: Laboratory studies were reviewed from [facility]. His white count was not particularly elevated. A troponin was measured at 0.38 without symptoms. Chemistry and INR are pending at this time. ASSESSMENT: 1. An 85-year-old gentleman with cellulitis of the left forearm. 2. Coronary artery disease with previous permanent pacemaker and ablation. 3. Paroxysmal atrial fibrillation. 4. Chronic anticoagulation. 5. Essential hypertension. 6. Asymptomatic elevation of troponin levels. PLAN: 1. Admit to the inpatient unit. 2. Vancomycin ordered. 3. Serial INRs, chemistries and troponin levels. 4. Cardiology consult. 5. Diet as tolerated. Prognosis is fair. DEIRDRE AVINA MD DR: PADMINI/oswald JOB#: [id number] / [id number] BRYAN Marc
[2020-06-25 19:50] VITALS: BP 107/48
[2020-06-25] MEDS: ATORVASTATIN CALCIUM 20 MG TABLET PO SCH (20:40)
[2020-06-25] MEDS: TORSEMIDE 20 MG TABLET. PO SCH (20:40)
[2020-06-25] MEDS: APIXABAN 5 MG TABLET. PO SCH (20:40)
[2020-06-25] MEDS: DOCUSATE SODIUM 100 MG CAPSULE PO SCH (20:40)
[2020-06-25 23:29] VITALS: BP 133/66
[2020-06-26] MEDS: oxyCODONE/APAP 10/325 1 TAB TABLET PO PRN ×4 (03:22→20:31)
[2020-06-26 05:36] VITALS: BP 133/61
[2020-06-26] MEDS: FLUoxetine HCL 20 MG CAPSULE PO SCH (08:35)
[2020-06-26] MEDS: APIXABAN 5 MG TABLET. PO SCH ×2 (08:35→20:31)
[2020-06-26] MEDS: DOCUSATE SODIUM 100 MG CAPSULE PO SCH ×2 (08:35→20:31)
--- NOTE | 2020-06-26 08:35 | PN ---
DATE: 06/26/2020 ATTENDING PHYSICIAN: Dr. Avina. SUBJECTIVE: Swelling is better. No new complaints. He denied any pain, fevers or chills. OBJECTIVE FINDINGS: VITAL SIGNS: Blood pressure today is 133/61, pulse is 60 and regular, temperature 97.5 degrees Fahrenheit, oxygen saturation 96% on room air. HEENT: Head is without trauma. Pupils are reactive. Sclerae nonicteric. Oropharynx clear. NECK: Supple, no bruits. LUNGS: Clear. CARDIOVASCULAR: Showed regular heart tones, paced rhythm. ABDOMEN: Soft. EXTREMITIES: Show decreased swelling and erythema of the left forearm. He has improved range of motion of the wrist. There are no open sores. LABORATORY DATA: His repeat troponin level still 0.38. Chemistry panel is pending. ASSESSMENT: 1. An 85-year-old gentleman with cellulitis of the left forearm. Clinically, this appears to be a Staphylococcus infection. It is improved with the intravenous vancomycin. 2. Known coronary artery disease with previous permanent pacemaker and ablation. 3. Paroxysmal atrial fibrillation. 4. Chronic anticoagulation. 5. Essential hypertension. 6. Asymptomatic elevation of troponin levels. PLAN: 1. Continue vancomycin as ordered. 2. Serial chemistries, INR, and troponin levels. 3. Cardiology consultation has been obtained. He is clinically stable at this time. 4. Diet as tolerated. 5. Tentative plans for inpatient care throughout the weekend. DEIRDRE AVINA MD DR: PADMINI/oswald JOB#: [id number] / [id number] BRYAN Marc
[2020-06-26] MEDS: PANTOPRAZOLE 40 MG TABLET. PO SCH (08:36)
[2020-06-26] MEDS: TORSEMIDE 20 MG TABLET. PO SCH ×2 (08:36→20:31)
[2020-06-26 08:47] LABS: CALCIUM 8.6 mg/dL (8.5-10.1); GFR 71.4
[2020-06-26] MEDS: MONTELUKAST 10 MG TABLET. PO SCH (08:50)
[2020-06-26] MEDS: TAMSULOSIN 0.4 MG CAP.ER.24H. PO SCH (08:50)
[2020-06-26 09:00] LABS: POTASSIUM 3.1 mmol/L (3.5-5.1)
[2020-06-26] MEDS ORDERED: WARFARIN 2.5 MG TABLET. PO SCH (09:00)
[2020-06-26] MEDS ORDERED: VANCOMYCIN 1.25 GM in IV NORMAL SALINE 250ML 250 ML IV SCH (10:00)
[2020-06-26] MEDS ORDERED: MAGNESIUM SULFATE 1GM 100 ML IV ONE (10:15)
[2020-06-26 10:43] VITALS: BP 134/70
--- NOTE | 2020-06-26 12:54 | PDOC2 ---
CONSULT DOS: DATE: 06/26/20 TIME: 12:54 Reason for Consult: Elevated troponin level Referring Physician: Dr. Thompson Chief Complaint Left arm swelling Source: Chart review, Patient History of Present Illness 85-year-old male with history of SSS s/p permanent pacemaker implantation initially presented to [facility] ER with progressive pain, swelling and reddish discoloration of left arm. He was diagnosed with cellulitis and transferred to [facility] for further management. His troponin level was slightly elevated prompting cardiology consultation. He denied any chest pain, orthopnea/PND, palpitations or syncope. He denied any previous history of CAD/stent placement. Past Medical History Permanent atrial fibrillation SSS s/p PPM implantation Hypertension Hyperlipidemia Chronic back pain COPD Past Surgical History Permanent pacemaker implantation 3 to 4 years ago per patient Appendectomy Carpal tunnel release surgery Cholecystectomy Knee surgery Appendectomy Left upper lung lobectomy Cataract surgery Family History Coronary disease and hypertension Social History Patient stopped smoking in 1989. He denied any alcohol or drug use. Current Medications Current Medications Diltiazem HCl (Cardizem 24hr Cd) 240 mg DAILY PO Last administered on 06/26/20 08:50; Start 06/26/20 at 09:00 Fluoxetine HCl (PROzac) 20 mg DAILYWBKFT PO Last administered on 06/26/20 08:35; Start 06/26/20 at 08:00 Montelukast Sodium (Singulair) 10 mg DAILY PO Last administered on 06/26/20 08:50; Start 06/26/20 at 09:00 Oxycodone/ Acetaminophen (Percocet 10/325) 1 tab PRN Q4HRS PRN PO PAIN Last administered on 06/26/20at 08:35; Start 06/25/20 at 16:00 Tamsulosin HCl (Flomax) 0.4 mg DAILY PO Last administered on 06/26/20 08:50; Start 06/26/20 at 09:00 Torsemide (Demadex) 10 mg BID PO Last administered on 06/26/20at 08:36; Start 06/25/20 at 21:00 Warfarin Sodium (Coumadin) 2.5 mg DAILY PO ; Start 06/26/20 at 09:00; Stop 06/25/20 at 13:58; Status DC Pantoprazole Sodium (Protonix) 40 mg DAILYAC PO Last administered on 06/26/20at 08:36; Start 06/26/20 at 07:30 Atorvastatin Calcium (Lipitor) 20 mg QHS PO Last administered on 06/25/20at 20:40; Start 06/25/20 at 21:00 Vancomycin HCl 1.25 gm/Sodium Chloride 250 ml @ 250 mls/hr Q24H IV Last administered on 06/26/20at 08:51; Start 06/26/20 at 10:00 Vancomycin HCl (Vancomycin Trough Level) 1 each 1X ONCE MC ; Start 06/27/20 at 09:30; Stop 06/27/20 at 09:31 Apixaban (Eliquis) 5 mg BID PO Last administered on 06/26/20at 08:35; Start 06/25/20 at 21:00 Docusate Sodium (Colace) 100 mg BID PO Last administered on 06/26/20at 08:35; Start 06/25/20 at 21:00 Vancomycin HCl (Vanco Per Pharmacy) 1 each PRN DAILY PRN MC SEE COMMENTS Last administered on 06/25/20at 14:28; Start 06/25/20 at 14:30 Potassium Chloride (Klor-Con) 40 meq DAILY PO ; Start 06/27/20 at 09:00 Magnesium Sulfate 100 ml @ 100 mls/hr 1X ONCE IV ; Start 06/26/20 at 10:15; Stop 06/26/20 at 11:14; Status DC Active Scripts Active Demadex (Torsemide) 20 Mg Tablet 10 Mg PO BID 30 Days Reported Klor-Con 10 (Potassium Chloride) 10 Meq Tablet.er 1 Tab PO DAILY 30 Days NITROGLYCERIN SubLingual (Nitroglycerin) 0.4 Mg Tab.subl 1 Tab SL UD 1st sign of attack; may repeat every 5 mins; if pain persists after 3 in 15 min, medical attention is recommended Escitalopram Oxalate 20 Mg Tablet 1 Tab PO DAILY Eliquis (Apixaban) 5 Mg Tablet 5 Mg PO BID Cymbalta (Duloxetine Hcl) 60 Mg Capsule. 1 Cap PO DAILY Docusate Sodium 100 Mg Capsule 1 Cap PO BID 7 Days Albuterol Sulfate Neb Soln (Albuterol Sulfate) 2.5 Mg/3 Ml Vial.neb 1 Vial N EB PRN Q4HRS Tamsulosin Hcl 0.4 Mg Cap.er.24h 1 Cap PO DAILY Pravastatin Sodium 80 Mg Tablet 1 Tab PO QHS Oxycodone-Acetaminophen 10-325 (Oxycodone Hcl/Acetaminophen) 1 Each Tablet 2 Tab PO PRN TID PRN Montelukast Sodium Tablet (Montelukast Sodium) 10 Mg Tablet 1 Tab PO DAILY Cardizem Cd (Diltiazem Hcl) 120 Mg Cap.er.24h Unknown Dose PO DAILY Prilosec (Omeprazole) 20 Mg Capsule.dr 2 Cap PO BID Allergies: Coded Allergies: meloxicam (Verified Allergy, Severe, Anaphylaxis, 07/09/18) cortisone (Verified Allergy, Mild, Unknown, 07/09/18) pain/cramping dronedarone (Verified Allergy, Mild, Diarrhea, 07/09/18) PSYCHOLOGICAL ROS: No: Hallucinations Eyes: No: Loss of vision HEENT: No: Epistaxis Respiratory: YES: Shortness of breath; No: Hemoptysis Cardiovascular: No: Chest Pain Gastrointestinal: No: Nausea, Vomiting, Diarrhea Genitourinary: No: Henaturia Neurological: No: Seizures Skin: No: Rash General: Alert, No acute distress HEENT: Atraumatic Lungs: Other (Scattered crepitations bilaterally) Heart: Regular rate Abdomen: Soft Extremities: No edema, Other (Erythema and swelling left arm extending into his forearm) Psych/Mental Status: Mood NL VITALS Vital Signs Date Time Temp Pulse Resp B/P (MAP) Pulse Ox O2 Delivery O2 Flow Rate FiO2 06/26/20 10:43 97.9 77 16 134/70 (91) 98 Room Air 06/25/20 19:50 2.0 Labs Laboratory Tests Test 06/25/20 13:07 06/26/20 08:25 Troponin I Quantitative 0.389 ng/mL (0-0.055) Sodium Level 136 mmol/L (136-145) Potassium Level 3.1 mmol/L (3.5-5.1) Chloride Level 98 mmol/L (98-107) Carbon Dioxide Level 31 mmol/L (21-32) Anion Gap 7 (6-14) Blood Urea Nitrogen 19 mg/dL (8-26) Creatinine 1.0 mg/dL (0.7-1.3) Estimated GFR (Cockcroft-Gault) 71.4 Glucose Level 98 mg/dL (70-99) Calcium Level 8.6 mg/dL (8.5-10.1) Assessment/Plan 1. Left arm/forearm cellulitis: Continue intravenous antibiotics per IM 2. Slightly elevated troponin level, most probably demand ischemia. He denied any chest pain. Doubt ACS. Plan outpatient 2D echo and Lexiscan nuclear stress test with primary fire captain. 3. Permanent atrial fibrillation. Telemetry showed paced rhythm. Continue Eliquis for stroke prophylaxis. 4. SSS s/p PPM, clinically stable. 5. Chronic diastolic heart failure: Well compensated. Continue current medical regimen including torsemide. 6. Hypertension: Controlled 7. Hyperlipidemia: Continue statin therapy Thank you for your consultation COLBY SOSA MD Jun 26, 2020 12:54
[2020-06-26 15:13] VITALS: BP 109/59
[2020-06-26 19:45] VITALS: BP 126/61
[2020-06-26] MEDS: ATORVASTATIN CALCIUM 20 MG TABLET PO SCH (20:31)
[2020-06-26 23:12] VITALS: BP 107/56
[2020-06-27] MEDS: oxyCODONE/APAP 10/325 1 TAB TABLET PO PRN ×4 (03:53→20:04)
[2020-06-27 06:10] VITALS: BP 125/62
[2020-06-27] MEDS: PANTOPRAZOLE 40 MG TABLET. PO SCH (08:33)
[2020-06-27] MEDS: FLUoxetine HCL 20 MG CAPSULE PO SCH (08:33)
[2020-06-27] MEDS: DOCUSATE SODIUM 100 MG CAPSULE PO SCH ×2 (08:34→20:03)
[2020-06-27] MEDS: APIXABAN 5 MG TABLET. PO SCH ×2 (08:34→20:03)
[2020-06-27] MEDS: TORSEMIDE 20 MG TABLET. PO SCH ×2 (08:34→20:04)
[2020-06-27] MEDS: MONTELUKAST 10 MG TABLET. PO SCH (08:34)
[2020-06-27] MEDS: TAMSULOSIN 0.4 MG CAP.ER.24H. PO SCH (08:35)
[2020-06-27] MEDS ORDERED: POTASSIUM CHLORIDE 20 MEQ TABLET.ER. PO SCH (09:00)
[2020-06-27 09:26] LABS: GFR 71.4
[2020-06-27 09:29] LABS: POTASSIUM 2.6 mmol/L (3.5-5.1)
[2020-06-27 09:31] LABS: VANC TR 4.6 mcg/mL (10.0-20.0)
[2020-06-27] MEDS ORDERED: MAGNESIUM SULFATE 1GM 100 ML IV ONE (09:35)
[2020-06-27] MEDS: VANCOMYCIN PER PHARMACY MC PRN (10:24)
[2020-06-27] MEDS: VANCOMYCIN 1 GM in IV NORMAL SALINE 250ML 250 ML IV SCH ×2 (10:29→23:03)
[2020-06-27 11:14] VITALS: BP 125/52
[2020-06-27 14:52] VITALS: BP 116/53
[2020-06-27] MEDS ORDERED: POTASSIUM CHLORIDE 20 MEQ TABLET.ER. PO ONE (15:20)
[2020-06-27 19:40] VITALS: BP 146/66
[2020-06-27] MEDS: LACTOBACILLUS RHAMNOSUS GG 1 CAPSULE. PO SCH (20:02)
[2020-06-27] MEDS: ATORVASTATIN CALCIUM 20 MG TABLET PO SCH (20:03)
[2020-06-27] MEDS: POTASSIUM CHLORIDE 20 MEQ TABLET.ER. PO SCH (20:04)
[2020-06-27 23:38] VITALS: BP 128/67
[2020-06-28] MEDS: oxyCODONE/APAP 10/325 1 TAB TABLET PO PRN ×5 (00:21→20:25)
[2020-06-28 06:20] VITALS: BP 154/70
[2020-06-28] MEDS: TAMSULOSIN 0.4 MG CAP.ER.24H. PO SCH (08:36)
[2020-06-28] MEDS: FLUoxetine HCL 20 MG CAPSULE PO SCH (08:36)
[2020-06-28] MEDS: MONTELUKAST 10 MG TABLET. PO SCH (08:36)
[2020-06-28] MEDS: APIXABAN 5 MG TABLET. PO SCH ×2 (08:37→20:25)
[2020-06-28] MEDS: PANTOPRAZOLE 40 MG TABLET. PO SCH (08:37)
[2020-06-28] MEDS: DOCUSATE SODIUM 100 MG CAPSULE PO SCH ×2 (08:37→20:25)
[2020-06-28] MEDS: POTASSIUM CHLORIDE 20 MEQ TABLET.ER. PO SCH ×2 (08:37→20:25)
[2020-06-28] MEDS: TORSEMIDE 20 MG TABLET. PO SCH ×2 (08:37→20:25)
[2020-06-28] MEDS: LACTOBACILLUS RHAMNOSUS GG 1 CAPSULE. PO SCH ×2 (08:37→20:26)
--- NOTE | 2020-06-28 09:18 | PN ---
DATE: 06/27/2020 PROGRESS NOTE SUBJECTIVE: Swelling is better. No new complaints. He is comfortable. OBJECTIVE FINDINGS: VITAL SIGNS: The patient is afebrile, blood pressure is 146/66, oxygen saturation 94% on room air. HEENT: Head is without trauma. Pupils are reactive. Sclerae nonicteric. Oropharynx is clear. NECK: Supple, no bruits. LUNGS: Otherwise, clear to auscultation. CARDIOVASCULAR: Showed regular heart tones, paced rhythm. No gallops. ABDOMEN: Soft, no guarding, no rebound tenderness. EXTREMITIES: Show decreased swelling and erythema of the left forearm. He still has some decreased range of motion. There is still significant swelling, but is not as tight. There are no open sores. LABORATORY DATA: His potassium is down to 2.6 mEq, potassium and magnesium supplement has been ordered. Cardiology consultation noted and appreciated. ASSESSMENT: 1. An 85-year-old gentleman with cellulitis of the left arm. Clinically, this appears to be a Staphylococcus infection. It is improved with the intravenous vancomycin. 2. Known coronary artery disease with permanent pacemaker. 3. Stress demand ischemia leading to the rise in troponin. 4. Paroxysmal atrial fibrillation. 5. Chronic anticoagulation, on Eliquis. 6. Essential hypertension. 7. Asymptomatic elevation of troponin. PLAN: 1. Continue vancomycin as ordered. 2. Potassium and magnesium replacement. 3. Serial chemistries. 4. Further Cardiology workup as an outpatient. 5. Diet as tolerated. DEIRDRE AVINA MD DR: PADMINI/oswald JOB#: [id number] / [id number]
[2020-06-28 09:29] LABS: CALCIUM 8.2 mg/dL (8.5-10.1); GFR 71.4; POTASSIUM 3.5 mmol/L (3.5-5.1)
[2020-06-28] MEDS ORDERED: FUROSEMIDE 100 MG/10 ML VIAL IVP ONE (09:30)
--- NOTE | 2020-06-28 09:33 | PN ---
DATE: 06/28/2020 ATTENDING PHYSICIAN: Dr. Avina. SUBJECTIVE: He is not feeling as well today as yesterday. The swelling in the arm is still bothering him. He is tired. He denies any pain. OBJECTIVE FINDINGS: VITAL SIGNS: Temperature is 98.0 degrees Fahrenheit, blood pressure is 154/70 mmHg, pulse is 60, regular and paced. Oxygen saturation 97% on room air. HEENT: Head is without trauma. Pupils are reactive. Sclerae is nonicteric. Oropharynx is clear. NECK: Supple. No stridor. LUNGS: Good breath sounds. CARDIOVASCULAR: Showed distant heart tones, paced rhythm. No obvious gallops. ABDOMEN: Soft, scaphoid, nontender, no organomegaly. Bowel sounds were hypoactive. EXTREMITIES: Still show redness and erythema of the left arm extending all the way to the mid biceps. The range of motion of the left wrist is improved; however, there is still significant third space soft tissue swelling. Distal pulses are palpable, but weak. PERTINENT LABORATORY STUDIES: Followup chemistry is pending today. It was just drawn. He has been on potassium and magnesium supplementation. ASSESSMENT: 1. An 85-year-old gentleman with cellulitis of the left arm. Clinically, it appears to be a staphylococcal infection. It is improved with intravenous vancomycin. 2. Known coronary artery disease with previous permanent pacemaker and ablation. 3. Paroxysmal atrial fibrillation. 4. Stress demand ischemia causing slight rise in troponin. 5. Chronic anticoagulation, on Eliquis. 6. Essential hypertension. PLAN: 1. Continue vancomycin as ordered. 2. Serial chemistries. 3. Cardiology consultation appreciated. 4. Diet as tolerated. 5. Potassium and magnesium replacement. 6. Tentative discharge plans for next week. DEIRDRE AVINA MD DR: PADMINI/oswald JOB#: [id number] / [id number] Meenakshi Siddiqui
[2020-06-28 09:36] LABS: VANC TR 10.2 mcg/mL (10.0-20.0)
[2020-06-28] MEDS ORDERED: MAGNESIUM CITRATE 296 ML SOLUTION. PO ONE (10:40)
[2020-06-28] MEDS ORDERED: MAGNESIUM SULFATE 1GM 100 ML IV ONE (10:45)
[2020-06-28 11:00] VITALS: BP 145/68
[2020-06-28] MEDS: VANCOMYCIN 1.25 GM in IV NORMAL SALINE 250ML 250 ML IV SCH ×2 (11:33→22:27)
[2020-06-28] MEDS: VANCOMYCIN PER PHARMACY MC PRN (14:40)
[2020-06-28 15:23] VITALS: BP 149/73
[2020-06-28 18:41] VITALS: BP 143/64
[2020-06-28] MEDS: ATORVASTATIN CALCIUM 20 MG TABLET PO SCH (20:25)
[2020-06-28 22:59] VITALS: BP 143/67
[2020-06-29] MEDS: oxyCODONE/APAP 10/325 1 TAB TABLET PO PRN (06:05)
[2020-06-29 06:18] VITALS: BP 147/73
--- NOTE | 2020-06-29 07:34 | PDOC ---
CARDIO Progress Notes Date & Time Date of Service DATE: 06/29/20 TIME: 07:30 Time of Evaluation 07:30 Subjective Notes left arm improved. Wanting to go home later. No chest pain, shortness of breath. Vitals Vitals Vital Signs Date Time Temp Pulse Resp B/P (MAP) Pulse Ox O2 Delivery O2 Flow Rate FiO2 06/29/20 06:18 97.6 58 18 147/73 (97) 98 Room Air 06/28/20 20:00 3.0 Weight Weight [ ] Input and Output I.O. Intake and Output 06/29/20 06:59 Intake Total 1000 ml Output Total 2200 ml Balance -1200 ml Intake Oral 750 ml IV Total 250 ml Output Urine Total 2200 ml # Voids 4 # Bowel Movements 1 Laboratory Labs Laboratory Tests Test 06/27/20 09:05 06/28/20 09:12 Prothrombin Time 10.7 SEC (9.4-11.4) Prothromb Time International Ratio 1.0 (0.9-1.1) Sodium Level 136 mmol/L (136-145) 138 mmol/L (136-145) Potassium Level 2.6 mmol/L (3.5-5.1) 3.5 mmol/L (3.5-5.1) Chloride Level 95 mmol/L (98-107) 99 mmol/L (98-107) Carbon Dioxide Level 33 mmol/L (21-32) 32 mmol/L (21-32) Anion Gap 8 (6-14) 7 (6-14) Blood Urea Nitrogen 16 mg/dL (8-26) 15 mg/dL (8-26) Creatinine 1.0 mg/dL (0.7-1.3) 1.0 mg/dL (0.7-1.3) Estimated GFR (Cockcroft-Gault) 71.4 71.4 Glucose Level 137 mg/dL (70-99) 167 mg/dL (70-99) Calcium Level 8.0 mg/dL (8.5-10.1) 8.2 mg/dL (8.5-10.1) Vancomycin Level Trough 4.6 mcg/mL (10.0-20.0) 10.2 mcg/mL (10.0-20.0) Vancomycin Last Dose Date 06/26/20 06/27/20 Vancomycin Last Dose Time 1000 2230 Physical Exams HEENT: Neck Supple W Full Motion Chest: Symmetric Lungs: Clear to Auscultation Heart: S1S2, RRR (v-paced ) Abdomen: Soft N/T Extremities: Other (left arm erythema, 2+ edema ) Neurology: alert, oriented, follow commands Assessment Assessment 1. Left arm/forearm cellulitis: Continue intravenous antibiotics per IM 2. Mild troponin elevation; most probably type II, demand ischemia. CP free. Doubt ACS. 3. Permanent AFIB; tele with 100% v-pacing 4. SSS s/p PPM, clinically stable. 5. Chronic diastolic heart failure: Well compensated. Continue current medical regimen including torsemide. 6. Hypertension: Controlled 7. Hyperlipidemia; statin 8. Hypokalemia; replaced Recommendations Repeat trop ASA therapy Lipids. Continue statin Continue Cardizem for rate control Eliquis for stroke prophylaxis. Outpatient 2D echo and Lexiscan nuclear stress test with primary cardiology team, [facility]/BASIL Laguna EMILY APRN Jun 29, 2020 07:34
[2020-06-29] MEDS ORDERED: ASPIRIN ENTERIC COATED 81 MG TABLET.DR. PO SCH (08:00)
[2020-06-29] MEDS: MONTELUKAST 10 MG TABLET. PO SCH (08:15)
[2020-06-29] MEDS: LACTOBACILLUS RHAMNOSUS GG 1 CAPSULE. PO SCH (08:15)
[2020-06-29] MEDS: FLUoxetine HCL 20 MG CAPSULE PO SCH (08:15)
[2020-06-29] MEDS: APIXABAN 5 MG TABLET. PO SCH (08:16)
[2020-06-29] MEDS: TAMSULOSIN 0.4 MG CAP.ER.24H. PO SCH (08:16)
[2020-06-29] MEDS: PANTOPRAZOLE 40 MG TABLET. PO SCH (08:17)
[2020-06-29] MEDS: TORSEMIDE 20 MG TABLET. PO SCH (08:17)
[2020-06-29] MEDS: DOCUSATE SODIUM 100 MG CAPSULE PO SCH (08:17)
[2020-06-29] MEDS: POTASSIUM CHLORIDE 20 MEQ TABLET.ER. PO SCH (08:20)
[2020-06-29] MEDS: VANCOMYCIN 1.25 GM in IV NORMAL SALINE 250ML 250 ML IV SCH (10:19)
[2020-06-29 10:59] VITALS: BP 145/68
[2020-06-29] MEDS ORDERED: SULF1TAB24 PO (11:28)
[2020-06-29] MEDS ORDERED: CEFP200T PO (11:29)
[2020-06-29] MEDS ORDERED: FLUO20CA16 PO (11:30)
--- NOTE | 2020-06-29 13:32 | DS ---
DATE OF DISCHARGE: 06/29/2020 ATTENDING PHYSICIAN: Dr. Avina. FINAL DISCHARGE DIAGNOSES: 1. Cellulitis of the left forearm. 2. Coronary artery disease with previous permanent pacemaker and ablation. 3. Paroxysmal atrial fibrillation. 4. Chronic anticoagulation, on Eliquis. 5. Essential hypertension. 6. Stress demand ischemia and elevation of troponin levels. No evidence of ACS at this time. HISTORY AND PHYSICAL: This is an 85-year-old gentleman with multiple medical issues. He was seen in the Emergency Department at [facility]. He had marked swelling, erythema and infection of his left forearm. It extends all the way up to his biceps muscle. The skin is very tight and he has decreased range of motion of his wrist. The fingers of the left hand are like sausages. He was also found to have an elevated troponin level of 0.38. This was noted. Followup troponins were repeated and a Cardiology consultation was obtained. He was transferred here for inpatient care and intravenous antibiotics. PHYSICAL EXAMINATION: Please see my dictated note. PERTINENT LABORATORY AND X-RAY STUDIES: Potassium was replaced up to 3.5 mEq per liter, sodium 138 mEq, creatinine is stable at 1.0 mg/dL. Repeat troponin was 0.38, repeated 4 days later it came down to 0.046. Chest x-ray showed no decompensation. Hemoglobin was drawn at [facility] and it was stable and within normal range. The vancomycin trough was drawn and reported at 15. COURSE IN THE HOSPITAL: The patient received 4 full days of intravenous vancomycin along with diuresis, potassium and magnesium replacement for hypokalemia. He did well. Swelling was down. He had increased range of motion and the redness and erythema has subsided. He was still swollen, but not to the degree as it was. On the fifth hospital day, the patient's vital signs are quite stable. He was afebrile. Blood pressure was 147/73 mmHg, pulse is regular and oxygen saturation is 98% on room air. His lungs were clear. Cardiology followup showed that he was stable from their standpoint. They felt that the bump and the elevation of troponin was due to stress ischemia and demand. 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 There was no urgency for further workup at this time. Therefore, on the fifth hospital day, he was wanting to go home. I recommended 10 more days of Vantin 200 mg b.i.d., Bactrim DS 1 p.o. b.i.d. for 10 days and continuation of his home meds including Eliquis 5 mg b.i.d., albuterol inhaler as needed, diltiazem 120 mg daily, Prozac 20 mg daily, omeprazole, oxycodone p.r.n. pain, Flomax and Demadex 20 mg daily along with potassium supplementation. He will followup with Meenakshi Sharp in 1 week. He will make the appointment and then we will also schedule him for outpatient Cardiology evaluation. The patient was then discharged from our hospital in stable condition with explicit instructions and followup care. TOTAL DISCHARGE TIME SPENT: 39 minutes. DEIRDRE AVINA MD DR: PADMINI/oswald JOB#: [id number] / [id number] MEENAKSHI Marc
== END 2020-06-29 12:20 | disposition home health service (06) | DRG 603 ==
LOC: 1 SOUTH 11:54
PROVIDERS: ADMIT Hospitalist; ATTEND Hospitalist
DX: L03.114 Cellulitis of left upper limb (principal); I50.32 Chronic diastolic (congestive) heart failure; I24.8 Other forms of acute ischemic heart disease; I48.21 Permanent atrial fibrillation; E78.5 Hyperlipidemia, unspecified; E87.6 Hypokalemia; I11.0 Hypertensive heart disease with heart failure; I25.10 Atherosclerotic heart disease of native coronary artery without angina pectoris; I49.5 Sick sinus syndrome; J44.9 Chronic obstructive pulmonary disease, unspecified; Z79.01 Long term (current) use of anticoagulants; Z79.899 Other long term (current) drug therapy; Z82.49 Family history of ischemic heart disease and other diseases of the circulatory system; Z87.442 Personal history of urinary calculi; Z87.891 Personal history of nicotine dependence; Z95.0 Presence of cardiac pacemaker; G89.29 Other chronic pain
CPT/HCPCS: 36415; 80048; 80061; 80202; 84484; 85610; J3370; J3475; J7050

== ENCOUNTER → 2020-07-10 | Outpatient (CLI) | payer MEDICARE, BC ==
[2020-06-29 10:59] VITALS: BP 145/68
[~2020-07-10] MED LIST changes: +ALBU2.5V5 NEB; +APIX5TAB3 PO; +CEFP200T PO; +DOCU100C28 PO; +DULO60CA6 PO; +ESCITALOPRAM OX20 MG PO; +NITR0.4T22 SL; +POTA10TA5 PO; +SULF1TAB24 PO
--- NOTE | 2020-07-10 11:25 | RAD ---
EXAM: ABDOMEN 2 VIEWS. HISTORY: Abdominal pain. COMPARISON: None. FINDINGS: Supine and upright views of the abdomen are obtained. There is no pneumoperitoneum. There are no distended small bowel loops or significant air fluid levels. There is gas distally. Stool throughout the right colon suggests mild constipation. Cholecystectomy clips, a pacemaker lead and changes of posterior lumbar fusion are noted. There are diffuse moderate to severe thoracolumbar degenerative changes. Atherosclerotic calcifications are noted. IMPRESSION: 1. Findings consistent with mild constipation. No evidence of obstruction. Electronically signed by: Юлия Guillen MD (07/10/2020 11:22 AM) [id number]
== END | disposition home or self-care (01) ==
LOC: DXRAD 10:18
PROVIDERS: ATTEND Physician Assistant Medical
DX: K59.00 Constipation, unspecified (principal); M47.815 Spondylosis without myelopathy or radiculopathy, thoracolumbar region; Z90.49 Acquired absence of other specified parts of digestive tract; Z95.0 Presence of cardiac pacemaker
CPT/HCPCS: 74019

== ENCOUNTER → 2021-04-28 | Outpatient (CLI) | payer MEDICARE, BC ==
--- NOTE | 2021-04-28 14:50 | RAD ---
AP and Lateral Views of the Chest 04/28/2021 2:25 PM Indication: Reason: SHORTNESS OF BREATH / Spl. Instructions: / History: Comparison: Chest radiograph July 09, 2019 Findings: There is a single lead pacemaking device from a left subclavian approach. Postoperative jerald nges to the mediastinum and right hilum are similar. No pneumothorax or pleural effusion is seen. No acute infiltrate is seen. The heart is mildly enlarged but similar. No acute osseous changes are seen . IMPRESSION: 1. No evidence of acute cardiopulmonary process 2. Cardiomegaly, similar to comparison study 3. Postoperative changes Electronically signed by: Nick Mak MD (04/28/2021 2:47 PM) [id number]
== END ==
LOC: DXRAD 14:09
PROVIDERS: ATTEND Physician Assistant Medical
DX: I51.7 Cardiomegaly (principal)
CPT/HCPCS: 71046

== ENCOUNTER → 2021-11-05 | Outpatient (CLI) | payer MEDICARE, BC ==
[~2021-11-05] MED LIST changes: -CYCL-331 PO; +CYCL10TA19 PO; -DULO60CA6 PO; +DULO60CA7 PO; +POTA-112 PO; -POTA10TA5 PO
--- NOTE | 2021-11-05 17:11 | RAD ---
XR KNEE 3 VIEWS_RT History: Reason: RIGHT KNEE AND LOW BACK PAIN / Spl. Instructions: / History: Technique: 3 views right knee Comparison: None. Findings: Advanced right knee degenerative changes most prominent within the medial and patellofemoral compartm ents. Medial translation of the femur relation to the tibia. No dislocation. No acute fracture. No si gnificant knee joint effusion. Vascular calcifications. Calcified intra-articular loose bodies. Impression: 1. Advanced right knee DJD. Electronically signed by: Js Silveira DO (11/05/2021 5:09 PM) [id number]
--- NOTE | 2021-11-05 17:13 | RAD ---
XR LUMBAR SPINE 2-3V History: Reason: RIGHT KNEE AND LOW BACK PAIN / Spl. Instructions: / History: Technique: 3 views lumbar spine. Comparison: None. Findings: Posterior stabilization L4 on L5. Posterior decompression L4 and L5. Advanced degenerative disc nieto es most prominent L3-L4 and L2-L3. DISH related changes of the upper lumbar thoracic spine. Chronic T 12, L1 and L3 anterior vertebral body wedging. No definite acute fracture. Mild leftward curvature th e lumbar spine. Surgical clips right upper quadrant. Vascular calcifications. Impression: 1. 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 2. Postoperative changes lower lumbar spine. Electronically signed by: Js Silveira DO (11/05/2021 5:11 PM) [id number]
== END ==
LOC: RAD 11:31
PROVIDERS: ATTEND Physician Assistant Medical
DX: M17.11 Unilateral primary osteoarthritis, right knee (principal); M48.061 Spinal stenosis, lumbar region without neurogenic claudication; M48.16 Ankylosing hyperostosis [Forestier], lumbar region
CPT/HCPCS: 72100; 73562